=== PATIENT | female | born 1960 | race Caucasian/White ===

== ENCOUNTER 2024-11-14 19:18 | Emergency (ER) | payer MEDICAID, OTHER ==
[~2024-11-14] VITALS: Ht 160 cm; Wt 58.2 kg
[2024-11-14 19:55] VITALS: BP 132/91; PULSE 77; RESP 18; TEMP 97.8; O2SAT 97
[2024-11-14] MEDS: DexAMETHasone SOD PHOS 10MG/1ML VIAL INJ IM ONE (20:51)
[2024-11-14] MEDS ORDERED: OFL50TS OT (21:00)
--- NOTE | 2024-11-14 21:00 | ED.PDOC ---
Eye-HPI HPI Comments C/O LEFT EAR PAIN X TODAY AFTER AN AUDITORY TEST. REPORTS BLEEDING. BLOOD NOTED TO EXTERNL EAR CANAL. REPORTS DIMINISHED HEARIG AND PAIN. 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 Information Source: Patient Mode of Arrival: Ambulatory Past Medical History PAST MEDICAL HISTORY: Denies Surgical History: Denies all surgeries OUTREACH WORKER History: No Pertinent OUTREACH WORKER History Family History Family History: Reviewed,noncontributory to illness Social History Smoker: Non-Smoker Alcohol: Denies ETOH Use Drugs: Denies Drug Use Constitutional: denies: chills, diaphoresis, fatigue, fever, malaise, sweats, weakness, others EENTM: reports: ear drainage, ear pain; denies: blurred vision, double vision, ear bleeding, ear discharge, ear ringing, eye pain, eye redness, hearing loss, mouth pain, mouth swelling, nasal discharge, nose bleeding, nose congestion, nose pain, photophobia, tearing, throat pain, throat swelling, voice changes, others Respiratory: denies: cough, hemoptysis, orthopnea, SOB at rest, shortness of breath, SOB with excertion, stridor, wheezing, others Cardiovascular: denies: chest pain, dizzy spells, diaphoresis, Dyspnea on exertion, edema, irregular heart beat, left arm pain, lightheadedness, pa lpitations, PND, syncope, others Gastrointestinal: denies: abdomen distended, abdominal pain, blood streaked bowels, constipated, diarrhea, dysphagia, difficulty swallowing, hematemesis, melena, nausea, poor appetite, poor fluid intake, rectal bleeding, rectal pain, vomiting, others Genitourinary: denies: abnormal vagina bleeding, burning, dyspareunia, dysuria, flank pain, frequency, hematuria, incontinence, pain, , vagina discharge, urgency, others Neurological: denies: dizziness, fainting, headache, left sided numbness, left sided weakness, numbness, paresthesia, pre-existing deficit, right sided numbness, right sided weakness, seizure, speech problems, tingling, tremors, weakness, others Musculoskeletal: denies: back pain, gout, joint pain, joint swelling, muscle pain, muscle stiffness, neck pain, others Integumetry: denies: bruises, change in color, change in hair/nails, dryness, laceration, lesions, lumps, rash, wounds, others Allergic/Immunocompromised: denies: Difficulty Healing, Frequent Infections, Hives, Itching, others Hematologic/Lymphatic: denies: anemia, blood clots, easy bleeding, easy bruising, swollen glands, others Endocrine: denies: excessive hunger, excessive sweating, excessive thirst, excessive urination, flushing, intolerance to cold, intolerance to heat, unexplained weight gain, unexplained weight loss, others Psychiatric: denies: anxiety, bipolar disorder, depression, hopeless, panic disorder, schizophrenia, sleepless, suicidal, others Physical Exam General Appearance: No Apparent Distress, Normal HEENT: Pharynx Normal, TM Abnormal (L) (TM PERFORATED WITH NOTED BLOOD WITHIN EAR CANAL NO NOTED PURULENT DRAINAGE, OR EDEMA.) Neck: Full Range of Motion, Non-Tender Respiratory: Lungs Clear, No Respiratory Distress, Normal Breath Sounds Cardiovascular: No Murmur, Normal Peripheral Pulses, Regular Rate/Rhythm Breast Exam: Deferred Gastrointestinal: Non Tender, Soft Genitalia: Deferred Pelvic: Deferred Rectal: Deferred Extremities: Normal capillary refill, Normal inspection, Normal range of motion, Non-tender, No pedal edema Musculoskeletal : Apperance: Normal Neurologic: Alert, plate embosser II-XII nml as Tested, No Motor Deficits, Normal Affect, Normal Mood, No Sensory Deficits Cerebellar Function: Normal Reflexes: Normal Skin: Dry, Normal Color, Warm Lymphatic: No Adenopathy Was a procedure done? Was a procedure done?: No EENT DIFF Eye: N/A Ear: Foreign Body, Otitis Externa, Barotrauma, Otitis Media X-Ray, Labs, Meds, VS Vital Signs Date Time Temp Pulse Resp B/P (MAP) Pulse Ox O2 Delivery O2 Flow Rate FiO2 11/14/24 19:55 Room Air 11/14/24 19:55 97.8 77 18 132/91 (105) 97 11/14/24 19:55 97.8 77 18 132/91 (105) 97 97.8 Current Medications Medications (Trade) Dose Ordered Sig/Ankit Route Start Time Stop Time Status Last Admin Dexamethasone Sodium Phosphate (Decadron Injection) 10 mg ONCE ONCE IM 11/14/24 20:45 11/14/24 20:46 DC 11/14/24 20:51 X-Ray, Labs, Meds, VS Comment PATIENT GIVEN DECADRON 10 MG IM REPORTS IMPROVEMENT IN PAIN. TRIAL ANTIBIOTIC EAR DROPS.FOLLOW-UP WITH PCP IN 1 TO 2 DAYS. TAKE MEDICATIONS PRESCRIBED. RETURN TO ED FOR ANY NEW OR WORSENING SYMPTOMS. Time of 1ST Reevaluation: 20:47 Reevaluation 1ST: Improved Patient Education/Counseling: Diagnosis, Treatment, Prognosis, Need For Follow Up Family Education/Counseling: No Family Present Departure 1 Departure Time of Disposition: 20:47 Impression: Primary Impression: Perforated eardrum Qualified Codes: H72.92 - Unspecified perforation of tympanic membrane, left ear Disposition: 01 HOME / SELF CARE / HOMELESS Condition: Stable e-Prescriptions Ofloxacin (Otic) (FLOXIN OTIC) [address] 10 DROP OT BID for 14 Days, #10 DROP TEN DROPS TWICE DAILY IN LEFT EAR 14 DAYS (DISPENSE QUANTITY SUFFICIENT) Prov: GUIDO BARRERA 11/14/24 Discharged With: Self Critical Care Note Critical Care Time?: No Stability Stability form required: GUIDO Barillas Nov 14, 2024 21:00
== END 2024-11-14 21:30 | disposition home or self-care (01) ==
LOC: ER 19:18
DX: H72.92 Unspecified perforation of tympanic membrane, left ear (principal); Z79.2 Long term (current) use of antibiotics
CPT/HCPCS: 96372; 99283; J1100